=== PATIENT | male | born 1955 | race Caucasian/White ===

== ENCOUNTER → 2018-05-21 | Outpatient (CLI) | payer OTHER ==
[~2018-05-21] VITALS: Ht 170.2 cm; Wt 90.3 kg
[~2018-05-21] MED LIST: PRILOSEC 20 MG20 MG PO; PROTONIX40 M1 PO; PROZAC 20 MG20 M1 PO
[2018-05-21 13:18] VITALS: BP 123/86
== END ==
LOC: PAIN 11:50
DX: R07.89 Other chest pain (principal); G89.29 Other chronic pain; Z79.899 Other long term (current) drug therapy